=== PATIENT | male | born 1945 | race Caucasian/White ===

== ENCOUNTER → 2022-01-08 10:05 | Outpatient (CLI) | payer MEDICARE, SELFPAY ==
--- NOTE | 2022-01-08 10:11 | DIET.CONS ---
Dietary Consultation Note 76y M attending RD visit with for help with diet to support body weight after his dx pancreatic cancer s/p whipple procedure which induced diabetes. Pt starts 24 rounds of chemotherapy on January 20, needs help attaining 1800kcals and 90g PRO daily. Ht: 5'9 Wt: 139# BMI: 20.5 UBW: 175# Usual Day: Sn: Orgain B: one egg c leftover dinner (ptoatoes, onion, mushrooms and chicken) c Abigail Plant based sausage gilles, breakfast potatoes L: turkey c lettuce on bread Sn: pb toast always soups: vegetable rice egg cashew, pistachio baked potato c gravy granola c blueberries, banana, almond milk Beverages: water Nutrition Diagnosis: Severe Protein Calorie Malnutrition r/t hypermetabolism of malignancy, early satiety, and taste changes aeb pt with >20% unintentional weight loss in <1y, BMI 20.5 (severe for age), pt s/p whipple for pancreatic cancer starting chemotherapy in two weeks. Interventions: 1. Created meal plan template with kcal and pro content of commonly eaten foods. Strategy to consume 6 small meals daily aiming for 300kcals and 15g PRO. 2. Installed myfitnesspal on pts phone with instruction on using. 3. Discussed swapping low kcal low pro options for high kcal high pro options such as coconut milk in place of almond milk. EER: 1800kcals, 90g PRO Monitoring/Evaluations: phone consult thursday for f/u Electronically Signed by: Terrie Mix 01/08/22 10:11 Clinical Dietitian [address] [id number]
== END ==
PROVIDERS: Referring Provider Physician Assistant; Visit Provider Physician Assistant
DX: C25.9 Malignant neoplasm of pancreas, unspecified (principal); E08.69 Diabetes mellitus due to underlying condition with other specified complication
CPT/HCPCS: 97802